=== PATIENT | female | born 1985 | race African-American/Black ===

== ENCOUNTER 2017-04-18 12:15 | Emergency (ER) | payer OTHER | END 2017-04-18 15:08 | disposition left against medical advice (07) | LOC: FER 12:15 | DX: H53.8 Other visual disturbances (principal); R53.1 Weakness; G43.909 Migraine, unspecified, not intractable, without status migrainosus; Z53.8 Procedure and treatment not carried out for other reasons ==

== ENCOUNTER 2021-10-28 11:38 | Emergency (ER) | payer MEDICARE, OTHER ==
[~2021-10-28 11:38] MED LIST: ACETAMINOPHEN325 MG PO; ASCORBIC ACID500 MG PO; ASPIRIN EC81 MG MT; BACLOFEN 10MG T10 MG PO; COUMADIN3 MG PO; DEPO-PROVE150 MG/11 IM; ESSENTIAL DAIL1 EACH PO; GLUCOTROL XL5 MG PO; IRON325 M1 PO; MAXALT10 MG PO; METOPROLOL TART50 MG PO; NAPROXEN500 MG PO; PERCOCET 5-3251 EACH PO; PLAVIX75 M1 PO; PRILOSEC20 MG PO; ZOCOR10 M1 PO; ZOFRAN4 MG PO
[2021-10-28 12:48] LABS: INFLUENZA A NAA NEGATIVE (NEGATIVE)
[2021-10-28 12:55] LABS: CORONAVIRUS 2019 SARS-COV-2 POSITIVE (NEGATIVE)
== END 2021-10-28 13:49 | disposition home or self-care (01) ==
LOC: FER 11:38
PROVIDERS: Emergency Medicine
DX: U07.1 COVID-19 (principal)
CPT/HCPCS: 99283; U0002